=== PATIENT | female | born 1975 | race Caucasian/White ===

== ENCOUNTER 2020-10-10 16:49 | Emergency (ER) | payer BC, OTHER ==
[~2020-10-10] VITALS: Ht 162.6 cm; Wt 63.5 kg
[2020-10-10 16:56] VITALS: BP 167/62
[2020-10-10] MEDS ORDERED: LIDOCAINE 1% HCL (LOCAL ANESTH.) INJ 20ML MDV IJ ONE ×2 (17:15)
== END 2020-10-10 18:03 | disposition home or self-care (01) ==
LOC: ER 16:49
DX: S81.812A Laceration without foreign body, left lower leg, initial encounter (principal); X58.XXXA Exposure to other specified factors, initial encounter; Y93.89 Activity, other specified; Y92.89 Other specified places as the place of occurrence of the external cause; Y99.8 Other external cause status
CPT/HCPCS: 12004; 99283; J2001